=== PATIENT | male | born 1960 | race African-American/Black ===

== ENCOUNTER 2018-07-25 13:45 | Inpatient (IN) | payer MEDICARE ==
[2018-07-25] MEDS ORDERED: traMADol HCl 50 MG TAB PO PRN (18:16)
[2018-07-25] MEDS: (Anakinra [Kineret] 100 MG) SQ SCH (21:10)
[2018-07-25] MEDS ORDERED: Lantus 1000 UNITS/10 ML VIAL SC SCH (22:15)
[2018-07-26 05:24] LABS: #Basophils 0.1 thou/uL (0.0-0.2); #Lymphocytes 2.4 thou/uL (1.20-3.40); #Monocytes 0.4 thou/uL (0.11-0.59); #Neutrophils 4.3 thou/uL (1.40-6.50); %Basophils 0.8 % (0.0-1.0); %Eosinophils 0.4 % (0.0-10.0); %Lymphocytes 33.5 % (21.0-51.0); %Monocytes 5.6 % (0.0-10.0); %Neutrophils 59.6 % (42.0-75.0); Hemoglobin 11.1 g/dL (14.0-18.0); Mean Corpuscular HGB CONC 31.8 g/dL (32.0-36.0); Mean Corpuscular Hemoglobin 27.9 pg (27.0-31.0); Mean Corpuscular Volume 87.8 fL (78.0-98.0); Mean Platelet Volume 6.3 fL (7.4-10.4); Platelet Count 331 thou/uL (130-400); Red Blood Cell (RBC) Count 3.98 mill/uL (4.70-6.10); White Blood Cell (WBC) Count 7.3 thou/uL (4.8-10.8)
[2018-07-26 05:42] LABS: ALT (SGPT) 17 U/L (8-55); AST (SGOT) 14 U/L (5-34); Albumin 3.1 g/dL (3.5-5.0); Alkaline Phosphatase 75 U/L (40-150); Anion Gap 13 mmol/L (10-20); BUN (Urea Nitrogen) 12 mg/dL (8.4-25.7); Bilirubin, Total 0.4 mg/dL (0.2-1.2); CK (CPK) 19 U/L (30-200); CRP (Inflammatory) 6.56 mg/dL (= or < 0.5); Calc. Creatinine Clearance 95 mL/min (70-130); Calcium 9.1 mg/dL (7.8-10.44); Carbon Dioxide 26 mmol/L (22-29); Chloride 105 mmol/L (98-107); Estimated GFR-MDRD Greater than 90; Globulin 3.3 g/dL (2.4-3.5); Glucose 171 mg/dL (70-105); Potassium 3.8 mmol/L (3.5-5.1); Protein, Total 6.4 g/dL (6.0-8.3); Sodium 140 mmol/L (136-145)
[2018-07-26] MEDS: predniSONE 20 MG TAB PO SCH (08:08)
[2018-07-26] MEDS: Alogliptin 25 MG TAB PO SCH (08:09)
[2018-07-26] MEDS: Rivaroxaban 10 MG TAB PO SCH (08:09)
[2018-07-26] MEDS: Ezetimibe 10 MG TAB PO SCH (08:10)
[2018-07-26] MEDS: Famotidine 20 MG TAB PO SCH (08:10)
[2018-07-26] MEDS: Folic Acid 1 MG TAB PO SCH (08:10)
[2018-07-26] MEDS: Tamsulosin HCl 0.4 MG CAP PO SCH (08:11)
[2018-07-26] MEDS: Multivitamin W/ Minerals 1 TAB PO SCH (08:11)
[2018-07-26] MEDS: DAPTOmycin 500 MG in Sodium Chloride 0.9% 100 ML IVPB SCH (08:14)
[2018-07-26] MEDS ORDERED: Lantus 1000 UNITS/10 ML VIAL SC SCH (09:00)
[2018-07-26] MEDS ORDERED: DAPTOmycin 500 MG VIAL IVPB SCH (09:00)
[2018-07-26] MEDS ORDERED: Atorvastatin Calcium 40 MG TAB PO SCH (09:00)
--- NOTE | 2018-07-26 20:12 | PRG ---
DATE OF SERVICE: 07/26/2018 SUBJECTIVE: The patient is sitting up in the chair reading his iPad, states that he has become stiffer today, and eventually, it is evident on examination because he has not received his anakinra from his daughter, who will bring it in hopefully tomorrow or the next day. He has had no fever, chills, shortness of breath, cough, or chest pain. He has had no bruising or bleeding. OBJECTIVE: VITAL SIGNS: Have shown blood pressure 122/71, pulse 88, O2 saturations 97% on room air. LUNGS: Clear. CARDIAC: Showed regular rhythm. ABDOMEN: Soft and nontender. LABORATORY DATA: Show sodium 140, potassium 3.8, chloride 105, bicarb 26, BUN 12, creatinine 0.87, glucose 171, calcium 9.1, total bilirubin 0.4, AST 14, ALT 17, creatine kinase 19, CRP 656, albumin 3.1, globulin 3.3. White count 7300, hematocrit 34, hemoglobin 11.1. ASSESSMENT: 1. Methicillin-resistant Staphylococcus aureus bacteremia, on daptomycin 500 mg daily until August 14, with stable renal function. 2. Type 2 diabetes with inadequate control on 40 of Lantus in the morning. We will add 10 of Lantus at night routinely. 3. Rheumatoid arthritis and Still disease, apparently worsening off his anakinra and we will restart as soon as available. 4. Deep venous thrombosis, stable on Xarelto. 5. Adrenal insufficiency, stable on prednisone as chronic dose. 6. BPH, stable on his tamsulosin. PLAN: 1. Continue daptomycin. 2. Check labs next week. 3. Restart anakinra when available. 4. Continue Accu-Cheks, but no sliding scale and continue on Lantus 40 units in the morning and start on 10 units at night. Job ID: [id number]
[2018-07-26] MEDS ORDERED: Insulin Glargine 10 UNITS in Pre-Filled Syringe 1 EACH SC SCH (21:00)
[2018-07-26] MEDS: (Anakinra [Kineret] 100 MG) SQ SCH (21:45)
[2018-07-26] MEDS: Lantus 1000 UNITS/10 ML VIAL SC SCH (21:47)
--- NOTE | 2018-07-27 01:00 | HP ---
Admission to the skilled unit in [facility]. HISTORY OF PRESENT ILLNESS: The patient is a very pleasant 57-year-old black male with a long history of rheumatoid arthritis and possible Still disease, who has been admitted to the hospital several times with sepsis and shock, which he feels has been related to his treatment with immunosuppressant anakinra 100 mg subcu every evening. This has controlled his rheumatoid arthritis and his myocarditis, but he presented to the hospital at this time with onset of altered mental status, fever, and was found to have a positive blood culture for MRSA. Infectious Disease was consulted. He was admitted to the critical care unit because he did meet criteria for septic shock with significant hypotension requiring pressors. This resolved quickly; however, PICC line was inserted and he was started on daptomycin for 4 weeks with final dose of that antibiotic on August 14. PAST MEDICAL HISTORY: As mentioned above is positive for DVT, rheumatoid arthritis with poor control with methotrexate, but with good control with anakinra, but with recurrent episodes of sepsis syndrome. He also has been found to have adrenal insufficiency, which has been controlled with prednisone. He also has diabetes type 2, which has been exacerbated by the steroid therapy controlled in the hospital. He has a past history also of DVT for which he is on anticoagulation and he has a history of hyperlipidemia treated with statins. PAST SURGICAL HISTORY: Positive for cholecystectomy, left knee repair, shoulder repair, and C-spine surgery. ALLERGIES: HE HAS NO KNOWN ALLERGIES. FAMILY MEDICAL HISTORY: Positive for coronary disease, diabetes, end-stage renal disease. SOCIAL HISTORY: He lives with his mother. He is a nonsmoker, nondrinker. He is a full code. REVIEW OF SYSTEMS: HEENT: He denies any headaches, dizziness, change in vision or hearing, hoarseness, or dysphagia. PULMONARY: He denies any cough, sputum production, pneumonia, asthma, or tuberculosis. CARDIOVASCULAR: He denies any chest pain, orthopnea, paroxysmal nocturnal dyspnea, or edema. GASTROINTESTINAL: He denies any nausea, vomiting, diarrhea, constipation, or abdominal pain. GENITOURINARY: He denies any dysuria, hematuria, or nocturia. MUSCULOSKELETAL: He denies any stiffness or swelling in his joints. EXTREMITIES: He has been greatly improved with the anakinra and he did have significant stiffness or swelling in his neck, hands, feet prior to the dose of this medication. NEUROLOGIC: He denies any localized numbness or weakness to arms or extremities. PHYSICAL EXAMINATION: GENERAL: The patient is a middle-aged black male, sitting in the chair, appears to be in no acute distress. Oriented x3 and cooperative. VITAL SIGNS: Showed him to have blood pressure of 119/63, temperature is 98, pulse 80, respirations 18, O2 sats 95% on room air. HEENT: Pupils are equal, round, and reactive to light and accommodation. Sclerae anicteric. Conjunctivae pale. Oral mucous membranes are well hydrated. NECK: Supple. No nodes or masses. LUNGS: Clear. CARDIAC: Showed regular rhythm. No gallops or murmurs. ABDOMEN: Soft and nontender with no masses or organomegaly. SKIN/EXTREMITIES: Display no edema, clubbing, or cyanosis. NEUROLOGIC: Intact. LABORATORY DATA: Shows most recent white count of 6300, hematocrit 33, hemoglobin 11 and Accu-Cheks ranging from 198 to 355. Most recent sodium 135, potassium 3.9, chloride 100, bicarb 25, BUN 15, creatinine 1.07, calcium 8.9, and glucose 157. DIAGNOSTIC DATA: Echocardiogram done previously showed no evidence of vegetations. Chest x-ray done last week showed no infiltrates. Spinal fluid culture has been negative. Urine culture is negative and the blood culture as mentioned above shows MRSA. ASSESSMENT: 1. A 57-year-old black male with a history of Still disease, rheumatoid arthritis, immunosuppressed with anakinra, who has developed Methicillin-resistant Staphylococcus aureus bacteremia and is started on daptomycin to continue until August 14. 2. Rheumatoid arthritis, doing well on anakinra and we will continue on medication, but we will discuss with his emt i/99 next week. 3. Diabetes type 2, controlled with Levemir and Januvia and we will titrate dose here in the hospital. 4. Hyperlipidemia, stable on home medications and we will continue. 5. Adrenal insufficiency, stable on prednisone. We will continue to follow. 6. History of recent deep venous thrombosis, on Xarelto. 7. History of hypertension. Monitor closely. 8. History of chronic systolic and diastolic heart failure, compensated. Job ID: [id number]
--- NOTE | 2018-07-27 08:29 | PRG ---
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 He is admitted now for MRSA bacteremia, on daptomycin until August 14. He is feeling well, except that he is having increasing stiffness and pain in his neck and hands since he has not had his Anakinra since the transfer here and hopefully will obtain it tomorrow. His sugars have been slightly elevated, but have been increasingly controlled with titration of his a.m. and p.m. Lantus. He is denying any chest pain, shortness of breath, fever or chills. OBJECTIVE: VITAL SIGNS: Show him to have temperature 98.2, pulse 88, respirations 16, O2 sats 99% on room air, blood pressure 118/60. LUNGS: Clear. CARDIAC: Showed regular rhythm. ABDOMEN: Soft and nontender. SKIN/EXTREMITIES: Show increasing stiffness and tenderness in the metacarpophalangeal joints and in the cervical area with increased stiffness and soreness. LABORATORY DATA: His Accu-Cheks have improved to fasting of 135 to 167 in the morning, but still increasing to 368 in the afternoon and evening. ASSESSMENT: 1. Methicillin-resistant Staphylococcus aureus bacteremia, resolving on daptomycin 500 mg daily until August 14. 2. Type 2 diabetes with improving, but inadequate control on Lantus 10 units at night and Lantus 40 units in the morning. 3. Severe rheumatoid arthritis, on prednisone and Anakinra with increasing symptoms since off Anakinra. 4. History of deep venous thrombosis, on treatment with Xarelto 20 mg daily. 5. Benign prostatic hypertrophy, stable. PLAN: 1. Increase Lantus to 45 units in the morning, continue 10 units at night. 2. Continue prednisone for rheumatoid arthritis and give Anakinra as soon as available. 3. Continue daptomycin 500 mg daily. 4. Stressed the need to ambulate as much as possible. Job ID: [id number]
[2018-07-27] MEDS: Rivaroxaban 10 MG TAB PO SCH (08:52)
[2018-07-27] MEDS: predniSONE 20 MG TAB PO SCH (08:53)
[2018-07-27] MEDS: Multivitamin W/ Minerals 1 TAB PO SCH (08:54)
[2018-07-27] MEDS: Tamsulosin HCl 0.4 MG CAP PO SCH (08:54)
[2018-07-27] MEDS: Alogliptin 25 MG TAB PO SCH (08:54)
[2018-07-27] MEDS: Folic Acid 1 MG TAB PO SCH (08:55)
[2018-07-27] MEDS: DAPTOmycin 500 MG in Sodium Chloride 0.9% 100 ML IVPB SCH (08:55)
[2018-07-27] MEDS: Ezetimibe 10 MG TAB PO SCH (08:55)
[2018-07-27] MEDS: Famotidine 20 MG TAB PO SCH (08:55)
[2018-07-27] MEDS ORDERED: Atorvastatin Calcium 40 MG TAB PO SCH (09:00)
[2018-07-27] MEDS ORDERED: Sodium Chloride 0.9% 10 ML ONE (09:53)
[2018-07-27] MEDS: Lantus 1000 UNITS/10 ML VIAL SC SCH ×2 (10:29→21:45)
[2018-07-27] MEDS: Acetaminophen 500 MG TAB PO PRN (11:48)
[2018-07-27] MEDS: (Anakinra [Kineret] 100 MG) SQ SCH (21:40)
[2018-07-28] MEDS: Rivaroxaban 10 MG TAB PO SCH (07:56)
[2018-07-28] MEDS: predniSONE 20 MG TAB PO SCH (07:56)
[2018-07-28] MEDS: Insulin Regular 300 UNITS/3 ML VIAL SC SCH ×3 (07:56→16:42)
--- NOTE | 2018-07-28 08:37 | PRG ---
DATE OF SERVICE: 07/28/2018 SUBJECTIVE: The patient feels much better as he received his Anakinra last night and Tylenol with decreasing pain in his neck and hands. He is complaining somewhat; however, that he is not on a diabetic diet, although this is been ordered, and Accu-Cheks have been significantly elevated as compared to home readings. OBJECTIVE: VITAL SIGNS: Shows temperature is 99.7, pulse 96, respirations 14, O2 sats 97% on room air, blood pressure is 93/50. LUNGS: Clear. CARDIAC: Examination showed regular rhythm. ABDOMEN: Soft, nontender. SKIN/EXTREMITIES: Show tender MCP, PIP joints. LABORATORY DATA: Accu-Cheks ranged from 135 in the morning to 426 in the afternoon, on Lantus 40 units in the morning, 10 units at night. ASSESSMENT: 1. Resolving methicillin-resistant Staphylococcus aureus bacteremia, on IV daptomycin. 2. Still's disease, rheumatoid arthritis, now back on Anakinra and on his routine dose of prednisone 20 mg daily with improving stiffness, soreness. 3. Uncontrolled diabetes despite taking increased dose of medications as compared to at home. 4. Deconditioning, improving greatly. 5. History of deep venous thrombosis, on Xarelto treatment. 6. Benign prostatic hypertrophy, stable. PLAN: 1. Add 5 units of regular insulin pre-meal to his routine dose of Lantus 45 units in the morning, 10 units at night. 2. Continue Anakinra and prednisone for his rheumatoid arthritis, Still's disease. 3. Continue daptomycin 500 mg daily until August 14. 4. Stress need to get up and ambulate with PT and OT. 5. CBC, complete metabolic profile in the morning. Job ID: [id number]
[2018-07-28] MEDS: Famotidine 20 MG TAB PO SCH (08:52)
[2018-07-28] MEDS: Ezetimibe 10 MG TAB PO SCH (08:53)
[2018-07-28] MEDS: Tamsulosin HCl 0.4 MG CAP PO SCH (08:53)
[2018-07-28] MEDS: Folic Acid 1 MG TAB PO SCH (08:53)
[2018-07-28] MEDS: Alogliptin 25 MG TAB PO SCH (08:53)
[2018-07-28] MEDS: Multivitamin W/ Minerals 1 TAB PO SCH (08:54)
[2018-07-28] MEDS: DAPTOmycin 500 MG in Sodium Chloride 0.9% 100 ML IVPB SCH (08:54)
[2018-07-28] MEDS: Lantus 1000 UNITS/10 ML VIAL SC SCH ×2 (08:56→20:54)
[2018-07-28] MEDS ORDERED: Sodium Chloride 0.9% 10 ML ONE ×2 (09:11→09:50)
[2018-07-28] MEDS: (Anakinra [Kineret] 100 MG) SQ SCH (20:54)
[2018-07-29 05:13] LABS: Band 4 % (5-11); Eosinophils 2 % (0-10); Hemoglobin 10.4 g/dL (14.0-18.0); Lymphocytes 35 % (21-51); MDiff Complete? YES; Mean Corpuscular HGB CONC 32.2 g/dL (32.0-36.0); Mean Corpuscular Hemoglobin 28.2 pg (27.0-31.0); Mean Corpuscular Volume 87.4 fL (78.0-98.0); Monocytes 10 % (0-10); Neutrophil 49 % (42-75); Platelet Count 362 thou/uL (130-400); Platelet Morphology Comment Appears Adequate; RBC Distribution Width 15.2 % (11.5-14.5); RBC Morphology Normal; Red Blood Cell (RBC) Count 3.68 mill/uL (4.70-6.10); White Blood Cell (WBC) Count 5.8 thou/uL (4.8-10.8)
[2018-07-29 05:25] LABS: ALT (SGPT) 14 U/L (8-55); AST (SGOT) 16 U/L (5-34); Alkaline Phosphatase 70 U/L (40-150); Anion Gap 14 mmol/L (10-20); BUN (Urea Nitrogen) 16 mg/dL (8.4-25.7); Bilirubin, Total 0.4 mg/dL (0.2-1.2); CRP (Inflammatory) 5.65 mg/dL (= or < 0.5); Calc. Creatinine Clearance 98 mL/min (70-130); Carbon Dioxide 26 mmol/L (22-29); Chloride 105 mmol/L (98-107); Estimated GFR-MDRD Greater than 90; Globulin 2.9 g/dL (2.4-3.5); Glucose 98 mg/dL (70-105); Potassium 3.9 mmol/L (3.5-5.1); Protein, Total 5.9 g/dL (6.0-8.3); Sodium 141 mmol/L (136-145)
[2018-07-29] MEDS: Insulin Regular 300 UNITS/3 ML VIAL SC SCH ×3 (07:42→17:40)
[2018-07-29] MEDS: Rivaroxaban 10 MG TAB PO SCH (07:45)
[2018-07-29] MEDS: predniSONE 20 MG TAB PO SCH (07:46)
[2018-07-29] MEDS: DAPTOmycin 500 MG in Sodium Chloride 0.9% 100 ML IVPB SCH (08:47)
[2018-07-29] MEDS: Ezetimibe 10 MG TAB PO SCH (08:49)
[2018-07-29] MEDS: Folic Acid 1 MG TAB PO SCH (08:49)
[2018-07-29] MEDS: Tamsulosin HCl 0.4 MG CAP PO SCH (08:50)
[2018-07-29] MEDS: Alogliptin 25 MG TAB PO SCH (08:50)
[2018-07-29] MEDS: Famotidine 20 MG TAB PO SCH (08:50)
[2018-07-29] MEDS: Multivitamin W/ Minerals 1 TAB PO SCH (08:51)
[2018-07-29] MEDS: Lantus 1000 UNITS/10 ML VIAL SC SCH ×2 (08:54→20:42)
[2018-07-29] MEDS ORDERED: traMADol HCl 50 MG TAB PO PRN (17:45)
--- NOTE | 2018-07-29 18:52 | PRG ---
DATE OF SERVICE: 07/29/2018 SUBJECTIVE: The patient feels much better with decreased soreness and stiffness in joints, now that he is back on anakinra, and in fact, has been walking up and down the [place] today. He has had no fever, chills, cough or shortness of breath. He has been on his diet. OBJECTIVE: VITAL SIGNS: Blood pressure 104/59, temperature 98, pulse 97, respirations 18, and O2 sats 99% on room air. LUNGS: Clear. CARDIAC: Regular rhythm. ABDOMEN: Soft and nontender. SKIN/EXTREMITIES: Swollen, tender metacarpophalangeal joints, but appeared to be improving as well as proximal interphalangeal joints. LABORATORY: Sodium 141, potassium 3.9, chloride 105, bicarb 26, BUN 16, creatinine 0.85, glucose 98, and calcium 9.0. Total bilirubin 0.4, AST 16, ALT 14, alkaline phosphatase 70, and C-reactive protein 5.65. Total protein 5.9, albumin 3.0, and globulin 2.9. White count 5800, hematocrit 32, and hemoglobin 10. ASSESSMENT: 1. Resolving streptococcal bacteremia, on daptomycin; resolving methicillin-resistant Staphylococcus aureus bacteremia, on IV daptomycin until August 14. 2. Improving rheumatoid arthritis, Still disease, back on his anakinra and routine prednisone 20 mg daily doses with decreasing stiffness and soreness. 3. Uncontrolled diabetes, slowly improving with titration of insulin. 4. Deconditioning, resolved. 5. Benign prostatic hypertrophy, stable. 6. History of deep venous thrombosis, on Xarelto treatment. PLAN: 1. Increase premeal lispro to 7.5 units daily and continue 45 units in the morning and 10 units at night and Lantus. 2. Continue anakinra and prednisone for his rheumatoid arthritis. 3. Continue daptomycin 500 mg daily until August 14. 4. Continue to stress ambulation. 5. Continue Xarelto. Job ID: [id number]
[2018-07-29] MEDS: (Anakinra [Kineret] 100 MG) SQ SCH (20:42)
[2018-07-30] MEDS: Insulin Regular 300 UNITS/3 ML VIAL SC SCH ×3 (07:18→17:30)
[2018-07-30] MEDS: Rivaroxaban 10 MG TAB PO SCH (08:16)
[2018-07-30] MEDS: Famotidine 20 MG TAB PO SCH (09:15)
[2018-07-30] MEDS: Tamsulosin HCl 0.4 MG CAP PO SCH (09:15)
[2018-07-30] MEDS: Multivitamin W/ Minerals 1 TAB PO SCH (09:15)
[2018-07-30] MEDS: Folic Acid 1 MG TAB PO SCH (09:15)
[2018-07-30] MEDS: Alogliptin 25 MG TAB PO SCH (09:15)
[2018-07-30] MEDS: Ezetimibe 10 MG TAB PO SCH (09:16)
[2018-07-30] MEDS: DAPTOmycin 500 MG in Sodium Chloride 0.9% 100 ML IVPB SCH (09:16)
[2018-07-30] MEDS: predniSONE 20 MG TAB PO SCH (09:16)
[2018-07-30] MEDS: Lantus 1000 UNITS/10 ML VIAL SC SCH ×2 (09:17→20:44)
[2018-07-30] MEDS: (Anakinra [Kineret] 100 MG) SQ SCH (20:43)
[2018-07-31] MEDS: predniSONE 20 MG TAB PO SCH (08:17)
[2018-07-31] MEDS: Insulin Regular 300 UNITS/3 ML VIAL SC SCH ×3 (08:17→16:39)
[2018-07-31] MEDS: Rivaroxaban 10 MG TAB PO SCH (08:17)
[2018-07-31] MEDS: Ezetimibe 10 MG TAB PO SCH (08:18)
[2018-07-31] MEDS: Alogliptin 25 MG TAB PO SCH (08:18)
[2018-07-31] MEDS: Folic Acid 1 MG TAB PO SCH (08:18)
[2018-07-31] MEDS: Famotidine 20 MG TAB PO SCH (08:18)
[2018-07-31] MEDS: Lantus 1000 UNITS/10 ML VIAL SC SCH ×2 (08:18→20:03)
[2018-07-31] MEDS: Multivitamin W/ Minerals 1 TAB PO SCH (08:19)
[2018-07-31] MEDS: Tamsulosin HCl 0.4 MG CAP PO SCH (08:19)
[2018-07-31] MEDS: DAPTOmycin 500 MG in Sodium Chloride 0.9% 100 ML IVPB SCH (09:21)
[2018-07-31] MEDS: (Anakinra [Kineret] 100 MG) SQ SCH (20:03)
[2018-08-01] MEDS: Insulin Regular 300 UNITS/3 ML VIAL SC SCH ×3 (08:10→16:21)
[2018-08-01] MEDS: Alogliptin 25 MG TAB PO SCH (08:11)
[2018-08-01] MEDS: Famotidine 20 MG TAB PO SCH (08:11)
[2018-08-01] MEDS: Folic Acid 1 MG TAB PO SCH (08:11)
[2018-08-01] MEDS: predniSONE 20 MG TAB PO SCH (08:11)
[2018-08-01] MEDS: Ezetimibe 10 MG TAB PO SCH (08:11)
[2018-08-01] MEDS: Rivaroxaban 10 MG TAB PO SCH (08:11)
[2018-08-01] MEDS: Tamsulosin HCl 0.4 MG CAP PO SCH (08:12)
[2018-08-01] MEDS: Multivitamin W/ Minerals 1 TAB PO SCH (08:12)
[2018-08-01] MEDS: Lantus 1000 UNITS/10 ML VIAL SC SCH ×2 (08:12→20:23)
[2018-08-01] MEDS: DAPTOmycin 500 MG in Sodium Chloride 0.9% 100 ML IVPB SCH ×2 (09:00→18:20)
--- NOTE | 2018-08-01 14:21 | PRG ---
DATE OF SERVICE: 08/01/2018 SUBJECTIVE: Mr. Gonzales is doing well. Denies any complaints. Resting comfortably. Tolerating his medications and his diet. No family at bedside. OBJECTIVE: VITAL SIGNS: He is afebrile. Heart rate 96, respirations 18, oxygen saturation 99% on room air, blood pressure 108/67. CARDIOVASCULAR SYSTEM: S1, S2 plus. RESPIRATORY SYSTEMS: Normal vesicular breath sounds. ABDOMEN: Soft, nontender. Bowel sounds in all quadrants. EXTREMITIES: Without cyanosis, clubbing. Peripheral pulses are palpable. CENTRAL NERVOUS SYSTEM: AAO x3. Cranial nerves 2 through 12 intact. LABORATORY DATA: Blood sugars are 129, 166, 233, 341, 63, and 192. IMPRESSION: 1. Methicillin-resistant Staphylococcus aureus bacteremia. 2. Diabetes mellitus type 2. 3. Dyslipidemia. 4. Adrenal insufficiency. 5. Rheumatoid arthritis. 6. History of deep venous thrombosis. PLAN: 1. Continue daptomycin until August 14. 2. An 1800 calorie, heart-healthy, ADA diet. 3. Accu-Cheks with sliding scale coverage. 4. DVT and stress ulcer prophylaxis. 5. Decubitus precautions. 6. Routine laboratory values. 7. Physical therapy. 8. Discussed with the patient and nursing in detail. All questions answered. Job ID: [id number]
[2018-08-01] MEDS ORDERED: Sodium Chloride 0.9% 10 ML ONE (18:18)
[2018-08-01] MEDS: (Anakinra [Kineret] 100 MG) SQ SCH (20:23)
[2018-08-02] MEDS: predniSONE 20 MG TAB PO SCH ×2 (07:53→07:54)
[2018-08-02] MEDS: Rivaroxaban 10 MG TAB PO SCH (07:54)
[2018-08-02] MEDS: Insulin Regular 300 UNITS/3 ML VIAL SC SCH ×3 (07:57→17:06)
[2018-08-02] MEDS: Alogliptin 25 MG TAB PO SCH ×2 (09:10→09:11)
[2018-08-02] MEDS: DAPTOmycin 500 MG in Sodium Chloride 0.9% 100 ML IVPB SCH (09:11)
[2018-08-02] MEDS: Ezetimibe 10 MG TAB PO SCH ×2 (09:12→09:13)
[2018-08-02] MEDS: Famotidine 20 MG TAB PO SCH (09:13)
[2018-08-02] MEDS: Folic Acid 1 MG TAB PO SCH (09:13)
[2018-08-02] MEDS: Tamsulosin HCl 0.4 MG CAP PO SCH (09:14)
[2018-08-02] MEDS: Multivitamin W/ Minerals 1 TAB PO SCH (09:14)
[2018-08-02] MEDS: Lantus 1000 UNITS/10 ML VIAL SC SCH ×2 (09:14→20:12)
--- NOTE | 2018-08-02 09:34 | PRG ---
DATE OF SERVICE: 08/02/2018 SUBJECTIVE: Mr. Gonzales is up in his chair and just finished his breakfast. He is tolerating his antibiotics. He denies any questions or concerns. No family at bedside. OBJECTIVE: VITAL SIGNS: He is afebrile. Heart rate is 107, respirations 18, oxygen saturation 100% on room air, blood pressure 119/58. This was at 7:31 this morning. When I examined him, his heart rate is about 82. CARDIOVASCULAR SYSTEM: S1 and S2 plus. RESPIRATORY SYSTEM: Normal vesicular breath sounds. ABDOMEN: Soft, nontender. Bowel sounds heard in all quadrants. EXTREMITIES: Without cyanosis or clubbing. Peripheral pulses are palpable. CENTRAL NERVOUS SYSTEM: AAO x3. Cranial nerves 2 through 12 intact. Grossly nonfocal. IMPRESSION: 1. Methicillin-resistant Staphylococcus aureus bacteremia, on daptomycin IV until August 14. 2. Diabetes mellitus type 2. 3. Dyslipidemia. 4. Adrenal insufficiency. 5. Rheumatoid arthritis. 6. History of deep venous thrombosis. PLAN: 1. Continue daptomycin. 2. 1800 calorie heart-healthy ADA diet. 3. Accu-Cheks with sliding scale coverage. 4. DVT prophylaxis. He is already on Xarelto. 5. Decubitus precautions. 6. Stress ulcer prophylaxis. 7. Routine laboratory values. Job ID: [id number]
[2018-08-02] MEDS: ANAKINRA SC SCH (20:11)
[2018-08-03] MEDS: DAPTOmycin 500 MG in Sodium Chloride 0.9% 100 ML IVPB SCH (08:23)
[2018-08-03] MEDS: Insulin Regular 300 UNITS/3 ML VIAL SC SCH ×3 (08:25→17:07)
[2018-08-03] MEDS: Lantus 1000 UNITS/10 ML VIAL SC SCH ×2 (08:26→20:07)
[2018-08-03] MEDS: Rivaroxaban 10 MG TAB PO SCH (08:29)
[2018-08-03] MEDS: Alogliptin 25 MG TAB PO SCH (08:29)
[2018-08-03] MEDS: Tamsulosin HCl 0.4 MG CAP PO SCH (08:30)
[2018-08-03] MEDS: Folic Acid 1 MG TAB PO SCH (08:30)
[2018-08-03] MEDS: Famotidine 20 MG TAB PO SCH (08:30)
[2018-08-03] MEDS: Multivitamin W/ Minerals 1 TAB PO SCH (08:30)
[2018-08-03] MEDS: predniSONE 20 MG TAB PO SCH (08:31)
--- NOTE | 2018-08-03 10:23 | PRG ---
DATE OF SERVICE: 08/03/2018 SUBJECTIVE: Mr. Gonzales is doing well. Denies any complaints. Resting comfortably. Tolerating his antibiotics. His daptomycin is due for renewal, which was done. OBJECTIVE: VITAL SIGNS: He is afebrile. Heart rate 94, respirations 18, oxygen saturation 99% on room air, blood pressure 105/61. CARDIOVASCULAR SYSTEM: S1, S2 plus. RESPIRATORY SYSTEM: Normal vesicular breath sounds heard in all lung rincon. ABDOMEN: Soft, nontender. Bowel sounds heard in all quadrants. EXTREMITIES: Without cyanosis, clubbing. Peripheral pulses are palpable. Evidence for rheumatoid arthritis is present. CENTRAL NERVOUS SYSTEM: AAO x3. Cranial nerves 2 through 12 intact. Grossly nonfocal. IMPRESSION: 1. Methicillin-resistant Staphylococcus aureus bacteremia. 2. Diabetes mellitus type 2. 3. Dyslipidemia. 4. Adrenal insufficiency. 5. Rheumatoid arthritis. 6. History of deep venous thrombosis, on Xarelto. PLAN: 1. Continue daptomycin till the . 2. 1800 calorie heart-healthy ADA diet. 3. Accu-Cheks with sliding scale coverage. 4. DVT prophylaxis-on Xarelto. 5. Decubitus precautions. 6. Routine laboratory values to monitor blood counts, liver function and electrolytes. 7. Discussed with the patient in detail. All questions answered. Job ID: [id number]
[2018-08-03] MEDS: ANAKINRA SC SCH (20:06)
[2018-08-04] MEDS: Insulin Regular 300 UNITS/3 ML VIAL SC SCH ×3 (07:15→17:14)
[2018-08-04] MEDS: Alogliptin 25 MG TAB PO SCH (08:14)
[2018-08-04] MEDS: Tamsulosin HCl 0.4 MG CAP PO SCH (08:14)
[2018-08-04] MEDS: Ezetimibe 10 MG TAB PO SCH (08:14)
[2018-08-04] MEDS: Famotidine 20 MG TAB PO SCH (08:14)
[2018-08-04] MEDS: Folic Acid 1 MG TAB PO SCH (08:14)
[2018-08-04] MEDS: Rivaroxaban 10 MG TAB PO SCH (08:14)
[2018-08-04] MEDS: DAPTOmycin 500 MG in Sodium Chloride 0.9% 100 ML IVPB SCH (08:15)
[2018-08-04] MEDS: predniSONE 20 MG TAB PO SCH (08:15)
[2018-08-04] MEDS: Multivitamin W/ Minerals 1 TAB PO SCH (08:15)
[2018-08-04] MEDS: Lantus 1000 UNITS/10 ML VIAL SC SCH ×2 (08:16→20:41)
--- NOTE | 2018-08-04 11:44 | PRG ---
DATE OF SERVICE: 08/04/2018 SUBJECTIVE: Mr. Gonzales is doing well. Denies any complaints. Up in his chair, finished his breakfast, and enjoying his Sunday. No family at bedside. OBJECTIVE: VITAL SIGNS: He is afebrile. Heart rate 98, respirations 18, oxygen saturation 97% on room air, blood pressure 102/58. CARDIOVASCULAR: S1, S2 plus. RESPIRATORY: Normal vesicular breath sounds. ABDOMEN: Soft, nontender. Bowel sounds in all quadrants. EXTREMITIES: Without cyanosis or clubbing. Peripheral pulses are palpable. CENTRAL NERVOUS SYSTEM: AAO x3. Cranial nerves 2 through 12 intact. Motor system, grossly nonfocal. IMPRESSION: 1. Methicillin-resistant Staphylococcus aureus bacteremia, requiring daptomycin until . 2. Diabetes mellitus type 2. 3. Dyslipidemia. 4. Adrenal insufficiency. 5. Rheumatoid arthritis. 6. History of deep venous thrombosis. PLAN: 1. Continue current medications including IV antibiotics. 2. 1800-calorie heart-healthy ADA diet. 3. Accu-Cheks with sliding scale coverage. 4. DVT prophylaxis. He is on Xarelto. 5. Decubitus precautions. 6. Stress ulcer prophylaxis. 7. Routine laboratory values. 8. Dr. Souleymane Denton back tonight. Job ID: [id number]
[2018-08-04] MEDS: ANAKINRA SC SCH (20:39)
[2018-08-05] MEDS: Insulin Regular 300 UNITS/3 ML VIAL SC SCH ×3 (08:21→16:19)
[2018-08-05] MEDS: DAPTOmycin 500 MG in Sodium Chloride 0.9% 100 ML IVPB SCH (08:22)
[2018-08-05] MEDS: Rivaroxaban 10 MG TAB PO SCH (08:22)
[2018-08-05] MEDS: Alogliptin 25 MG TAB PO SCH (08:22)
[2018-08-05] MEDS: predniSONE 20 MG TAB PO SCH (08:22)
[2018-08-05] MEDS: Lantus 1000 UNITS/10 ML VIAL SC SCH ×2 (08:23→19:59)
[2018-08-05] MEDS: Ezetimibe 10 MG TAB PO SCH (08:23)
[2018-08-05] MEDS: Folic Acid 1 MG TAB PO SCH (08:23)
[2018-08-05] MEDS: Famotidine 20 MG TAB PO SCH (08:23)
[2018-08-05] MEDS: Multivitamin W/ Minerals 1 TAB PO SCH (08:24)
[2018-08-05] MEDS: Tamsulosin HCl 0.4 MG CAP PO SCH (08:24)
[2018-08-05] MEDS: ANAKINRA SC SCH (19:59)
[2018-08-06] MEDS ORDERED: Sodium Chloride 0.9% 10 ML ONE (08:13)
[2018-08-06] MEDS: Rivaroxaban 10 MG TAB PO SCH (08:29)
[2018-08-06] MEDS: Insulin Regular 300 UNITS/3 ML VIAL SC SCH ×3 (08:29→16:13)
[2018-08-06] MEDS: predniSONE 20 MG TAB PO SCH (08:29)
[2018-08-06] MEDS: Ezetimibe 10 MG TAB PO SCH (08:30)
[2018-08-06] MEDS: Alogliptin 25 MG TAB PO SCH (08:30)
[2018-08-06] MEDS: DAPTOmycin 500 MG in Sodium Chloride 0.9% 100 ML IVPB SCH (08:31)
[2018-08-06] MEDS: Famotidine 20 MG TAB PO SCH (08:32)
[2018-08-06] MEDS: Folic Acid 1 MG TAB PO SCH (08:32)
[2018-08-06] MEDS: Lantus 1000 UNITS/10 ML VIAL SC SCH ×2 (08:32→20:04)
[2018-08-06] MEDS: Multivitamin W/ Minerals 1 TAB PO SCH (08:33)
[2018-08-06] MEDS: Tamsulosin HCl 0.4 MG CAP PO SCH (08:33)
[2018-08-06] MEDS: ANAKINRA SC SCH (20:04)
[2018-08-07 05:41] LABS: Band 18 % (5-11); Eosinophils 1 % (0-10); Hemoglobin 11.4 g/dL (14.0-18.0); Lymphocytes 15 % (21-51); MDiff Complete? YES; Mean Corpuscular HGB CONC 30.8 g/dL (32.0-36.0); Mean Corpuscular Hemoglobin 27.4 pg (27.0-31.0); Mean Corpuscular Volume 88.9 fL (78.0-98.0); Mean Platelet Volume 5.5 fL (7.4-10.4); Metamyelocyte 3 % (0-0); Monocytes 5 % (0-10); Neutrophil 58 % (42-75); Platelet Count 223 thou/uL (130-400); Platelet Morphology Comment Appears Adequate; RBC Distribution Width 16.1 % (11.5-14.5); RBC Morphology Normal; Red Blood Cell (RBC) Count 4.15 mill/uL (4.70-6.10); White Blood Cell (WBC) Count 5.8 thou/uL (4.8-10.8)
[2018-08-07 05:43] LABS: ALT (SGPT) 39 U/L (8-55); AST (SGOT) 40 U/L (5-34); Albumin 3.3 g/dL (3.5-5.0); Alkaline Phosphatase 79 U/L (40-150); Anion Gap 15 mmol/L (10-20); BUN (Urea Nitrogen) 24 mg/dL (8.4-25.7); Bilirubin, Total 0.5 mg/dL (0.2-1.2); CRP (Inflammatory) 1.26 mg/dL (= or < 0.5); Calc. Creatinine Clearance 78 mL/min (70-130); Calcium 9.2 mg/dL (7.8-10.44); Carbon Dioxide 23 mmol/L (22-29); Chloride 105 mmol/L (98-107); Estimated GFR-MDRD 87; Globulin 3.1 g/dL (2.4-3.5); Glucose 101 mg/dL (70-105); Potassium 3.9 mmol/L (3.5-5.1); Protein, Total 6.4 g/dL (6.0-8.3); Sodium 139 mmol/L (136-145)
--- NOTE | 2018-08-07 06:33 | PRG ---
DATE OF SERVICE: 08/06/2018 SUBJECTIVE: The patient is a very pleasant 57-year-old black male with history of rheumatoid arthritis, Still disease, and recent finding of methicillin-resistant Staph bacteremia with negative echocardiogram, who is being treated at [facility] for this with IV daptomycin until August 14. He has comorbidities of type 2 diabetes, insulin dependent with only fair previous control but has done very well during this hospitalization with no complications. His rheumatoid arthritis has stabilized on his home medication of anakinra in addition to his chronic prednisone therapy and his diabetes has improved with titration of his insulin dose. He has had no hypoglycemic spells. No fever, chills, nausea, or vomiting. He has been walking in the [place]. OBJECTIVE: VITAL SIGNS: Showed him to have a temperature of 98.7, pulse 102, respirations 18, O2 sats 98% on room air, and blood pressure 105/65. LUNGS: Clear. CARDIAC: Showed regular rhythm. ABDOMEN: Soft and nontender. SKIN: Extremities show swollen metacarpophalangeal and proximal interphalangeal joints, but with no real synovitis or inflammation. LABORATORY DATA: Laboratory showed his Accu-Cheks have ranged from 123 in the morning to 302 in the afternoon, on Lantus and pre-meal sliding scale. ASSESSMENT: 1. Resolving methicillin-resistant Staphylococcus aureus bacteremia, on daptomycin. 2. Stable rheumatoid arthritis and Still disease, on anakinra and prednisone. 3. Improving deconditioning, walking in the [place]. 4. Persistently uncontrolled diabetes, on Lantus 45 units in the morning and 10 units at night as well as pre-meal lispro 7 units before every meal. PLAN: 1. Increase lispro to 8 units before every meal. Continue Lantus at previous dose. 2. Repeat CBC, comp met, sedimentation rate, and CRP in the a.m. 3. Continue IV daptomycin until August 14. 4. Continue to ambulate the [place]. Job ID: [id number]
[2018-08-07] MEDS: Multivitamin W/ Minerals 1 TAB PO SCH (08:22)
[2018-08-07] MEDS: Folic Acid 1 MG TAB PO SCH (08:22)
[2018-08-07] MEDS: Alogliptin 25 MG TAB PO SCH (08:22)
[2018-08-07] MEDS: Tamsulosin HCl 0.4 MG CAP PO SCH (08:22)
[2018-08-07] MEDS: Famotidine 20 MG TAB PO SCH (08:23)
[2018-08-07] MEDS: Rivaroxaban 10 MG TAB PO SCH (08:23)
[2018-08-07] MEDS: Ezetimibe 10 MG TAB PO SCH (08:23)
[2018-08-07] MEDS: predniSONE 20 MG TAB PO SCH (08:23)
[2018-08-07] MEDS: Insulin Regular 300 UNITS/3 ML VIAL SC SCH ×3 (08:24→17:14)
[2018-08-07] MEDS: DAPTOmycin 500 MG in Sodium Chloride 0.9% 100 ML IVPB SCH (08:32)
[2018-08-07] MEDS: Lantus 1000 UNITS/10 ML VIAL SC SCH ×2 (08:33→20:18)
--- NOTE | 2018-08-07 18:56 | PRG ---
DATE OF SERVICE: 08/07/2018 SUBJECTIVE: The patient feels well with only minimal pain in his hands. No shortness of breath. No weakness. No nausea or vomiting. Good appetite. He has been walking in the halls without assistance. OBJECTIVE: VITAL SIGNS: Show his vital signs are stable. Temperature 97.6, pulse 100, respirations 18, O2 saturations 97% on room air, blood pressure 100/62. LUNGS: Clear. CARDIAC: Showed regular rhythm. ABDOMEN: Soft and nontender. SKIN/EXTREMITIES: Show stable rheumatoid arthritis changes. LABORATORY DATA: Laboratories done today showed that white count is stable at 5800, hematocrit 36, hemoglobin 11, platelet count stable at 223. Sedimentation rate is down to 38 from previous 71 last week. Chemistry showed CRP is down to 1.26 from 5.65 last week. Sodium is 139, potassium 3.9, chloride 105, bicarb 23, BUN 24, creatinine 1.06. Accu-Cheks ranged from 102 to 302, but improved today with afternoon only 176. Albumin 3.3 and globulin 3.1. ASSESSMENT AND PLAN: 1. Resolving methicillin-resistant Staphylococcus aureus bacteremia, on daptomycin until August 14 with improving inflammatory markers and no symptoms. 2. Stable rheumatoid arthritis, Still disease, on home medications of anakinra and prednisone. 3. Diabetes type 2, improved but still not to goal and we will continue on the same dose today, but may increase premeal lispro tomorrow. Job ID: [id number]
[2018-08-07] MEDS: ANAKINRA SC SCH (20:19)
[2018-08-08] MEDS: Insulin Regular 300 UNITS/3 ML VIAL SC SCH ×3 (09:04→17:12)
[2018-08-08] MEDS: Lantus 1000 UNITS/10 ML VIAL SC SCH ×2 (09:04→20:22)
[2018-08-08] MEDS: Folic Acid 1 MG TAB PO SCH (09:06)
[2018-08-08] MEDS: Tamsulosin HCl 0.4 MG CAP PO SCH (09:06)
[2018-08-08] MEDS: Ezetimibe 10 MG TAB PO SCH (09:06)
[2018-08-08] MEDS: Multivitamin W/ Minerals 1 TAB PO SCH (09:06)
[2018-08-08] MEDS: Famotidine 20 MG TAB PO SCH (09:06)
[2018-08-08] MEDS: Alogliptin 25 MG TAB PO SCH (09:07)
[2018-08-08] MEDS: predniSONE 20 MG TAB PO SCH (09:07)
[2018-08-08] MEDS: Rivaroxaban 10 MG TAB PO SCH (09:07)
[2018-08-08] MEDS: DAPTOmycin 500 MG in Sodium Chloride 0.9% 100 ML IVPB SCH (09:07)
[2018-08-08] MEDS: ANAKINRA SC SCH (20:23)
--- NOTE | 2018-08-09 06:39 | PRG ---
DATE OF SERVICE: 08/08/2018 SUBJECTIVE: Patient feels well. No complaints, sitting up in a chair, walking in the [place], eating well. OBJECTIVE: VITAL SIGNS: Temperature is 98.5, pulse 95, respirations 18, O2 sats 96% on room air, and blood pressure 106/63. LUNGS: Clear. CARDIAC EXAMINATION: Showed regular rhythm. ABDOMEN: Soft and nontender. ASSESSMENT: 1. Resolving methicillin-resistant Staph bacteremia, on daptomycin until August 14. 2. Stable rheumatoid arthritis, Still disease. 3. Improved, resolved deconditioning. 4. Diabetes type 2 with improving control with Accu-Cheks mainly below 200. PLAN: 1. Continue daptomycin until August 14. Continue Accu-Cheks to monitor and titrate and control diabetes. 2. Continue home medications for rheumatoid arthritis. Job ID: [id number]
[2018-08-09] MEDS: Insulin Regular 300 UNITS/3 ML VIAL SC SCH ×3 (08:03→17:17)
[2018-08-09] MEDS: Rivaroxaban 10 MG TAB PO SCH (08:03)
[2018-08-09] MEDS: predniSONE 20 MG TAB PO SCH (08:03)
[2018-08-09] MEDS: Famotidine 20 MG TAB PO SCH (09:30)
[2018-08-09] MEDS: Ezetimibe 10 MG TAB PO SCH (09:30)
[2018-08-09] MEDS: DAPTOmycin 500 MG in Sodium Chloride 0.9% 100 ML IVPB SCH (09:30)
[2018-08-09] MEDS: Alogliptin 25 MG TAB PO SCH (09:30)
[2018-08-09] MEDS: Multivitamin W/ Minerals 1 TAB PO SCH (09:30)
[2018-08-09] MEDS: Tamsulosin HCl 0.4 MG CAP PO SCH (09:30)
[2018-08-09] MEDS: Folic Acid 1 MG TAB PO SCH (09:30)
[2018-08-09] MEDS: Lantus 1000 UNITS/10 ML VIAL SC SCH ×2 (09:31→20:12)
[2018-08-09] MEDS: Sodium Chloride 0.9% 20 ML ONE (09:41)
[2018-08-09] MEDS: ANAKINRA SC SCH (20:12)
[2018-08-10] MEDS: Insulin Regular 300 UNITS/3 ML VIAL SC SCH ×3 (08:13→17:15)
[2018-08-10] MEDS: Multivitamin W/ Minerals 1 TAB PO SCH (08:16)
[2018-08-10] MEDS: Rivaroxaban 10 MG TAB PO SCH (08:16)
[2018-08-10] MEDS: Ezetimibe 10 MG TAB PO SCH (08:16)
[2018-08-10] MEDS: Folic Acid 1 MG TAB PO SCH (08:16)
[2018-08-10] MEDS: Alogliptin 25 MG TAB PO SCH (08:16)
[2018-08-10] MEDS: Tamsulosin HCl 0.4 MG CAP PO SCH (08:16)
[2018-08-10] MEDS: Famotidine 20 MG TAB PO SCH (08:16)
[2018-08-10] MEDS: predniSONE 20 MG TAB PO SCH (08:17)
[2018-08-10] MEDS: DAPTOmycin 500 MG in Sodium Chloride 0.9% 100 ML IVPB SCH (08:17)
--- NOTE | 2018-08-10 08:17 | PRG ---
DATE OF SERVICE: 08/10/2018 SUBJECTIVE: Mr. Gonzales is a very pleasant 57-year-old black male with rheumatoid arthritis, treated with immunosuppressant and anakinra 100 mg subcu every evening. Unfortunately, the patient developed altered mental status and fevers, found to have positive blood cultures with MRSA from the immunosuppressant. Seen by infectious disease and placed in ICU. He had septic shock with hypotension. Eventually, this was stabilized. The patient had a PICC line and started on daptomycin for 4 weeks with the last dose being August 14. Today, the patient states that he is feeling well. He has no complaints. OBJECTIVE: VITAL SIGNS: Today reveal blood pressure 91/52, pulse 94 to 99, respirations 18 to 20, O2 saturation 98% on room air, and T-max 98.2. GENERAL: This is a well-developed, well-nourished, very pleasant black male, in no apparent distress at this time. HEENT: Normocephalic and nontraumatic cranium. Pupils are equal, round, and reactive. Extraocular movements are intact. Nose and throat are slightly dry. NECK: Supple without masses, nodes, or bruits. CHEST: Clear to auscultation. No rales, rhonchi, or wheezes are heard. HEART: Regular rate and rhythm without murmurs, gallops, or rubs. ABDOMEN: Soft and nontender without organomegaly. Normal bowel sounds are noted. No rebound or guarding is noted. : Deferred. EXTREMITIES: No clubbing, cyanosis, or edema. NEUROLOGIC: The patient is oriented x3. ASSESSMENT: 1. Methicillin-resistant Staphylococcus aureus bacteremia, daptomycin until August 14. 2. Rheumatoid arthritis. 3. Still disease. 4. Generalized weakness with deconditioning. 5. Diabetes, type 2 with Accu-Cheks yesterday, stable in the morning, but elevated last night. PLAN: 1. Continue daptomycin until August 14. 2. Monitor the patient's diabetes with Accu-Cheks a.c. and h.s. and adjust medications as needed. 3. Continue home medications. 4. Continue rheumatoid injections every evening. 5. Stress ulcer prophylaxis. 6. Decubitus precautions. 7. DVT prophylaxis. 8. Physical therapy and occupational therapy as needed. Job ID: [id number] [facility]
[2018-08-10] MEDS: Sodium Chloride 0.9% 20 ML ONE (08:18)
[2018-08-10] MEDS: Lantus 1000 UNITS/10 ML VIAL SC SCH ×2 (08:18→20:52)
[2018-08-10] MEDS: Acetaminophen 500 MG TAB PO PRN (09:05)
[2018-08-10 19:25] VITALS: BMI 24.3
[2018-08-10] MEDS: ANAKINRA SC SCH (20:55)
[2018-08-11] MEDS: Insulin Regular 300 UNITS/3 ML VIAL SC SCH ×3 (08:08→17:09)
[2018-08-11] MEDS: Folic Acid 1 MG TAB PO SCH (08:09)
[2018-08-11] MEDS: predniSONE 20 MG TAB PO SCH (08:09)
[2018-08-11] MEDS: Alogliptin 25 MG TAB PO SCH (08:09)
[2018-08-11] MEDS: Rivaroxaban 10 MG TAB PO SCH (08:09)
[2018-08-11] MEDS: Multivitamin W/ Minerals 1 TAB PO SCH (08:09)
[2018-08-11] MEDS: Tamsulosin HCl 0.4 MG CAP PO SCH (08:09)
[2018-08-11] MEDS: Ezetimibe 10 MG TAB PO SCH (08:09)
[2018-08-11] MEDS: Famotidine 20 MG TAB PO SCH (08:09)
[2018-08-11] MEDS: DAPTOmycin 500 MG in Sodium Chloride 0.9% 100 ML IVPB SCH (08:10)
[2018-08-11] MEDS: Lantus 1000 UNITS/10 ML VIAL SC SCH ×2 (08:15→20:55)
--- NOTE | 2018-08-11 08:57 | PRG ---
DATE OF SERVICE: 08/11/2018 SUBJECTIVE: Mr. Gonzales is a very pleasant 57-year-old black male, with rheumatoid arthritis. He has been treated with anakinra 100 mg subcu every evening. The patient has been immunosuppressed and unfortunately developed fever and mental status changes, but cultures were positive for MRSA. He was seen by Infectious Disease and was placed in the ICU initially with septic shock and hypotension. Eventually, he was stabilized. He had a PICC line placed and started on daptomycin 4 weeks with last dose being on August 14. He was transferred to [facility] for continued antibiotics. The patient states he is doing well and feeling well and knows that it is Sunday and . He has no complaints today. OBJECTIVE: VITAL SIGNS: Reveal blood pressure 99/63, pulse 86, respirations 20, O2 saturation 98% to 99% on room air T-max 97.9. GENERAL: On physical exam, he is a well-developed, well-nourished, very pleasant white male, in no apparent distress at this time. HEENT: Reveals normocephalic and nontraumatic cranium. Pupils are equally round and reactive. Extraocular movements are intact. Nose and throat are slightly dry. NECK: Supple without masses, nodes, or bruits. CHEST: Clear to auscultation. No rales, rhonchi, wheezes, or coughs are noted. HEART: Reveals a regular rate and rhythm without murmurs, gallops, or rubs. ABDOMEN: Soft, nontender without organomegaly. Normal bowel sounds are noted. No rebound or guarding is noted. GENITOURINARY: Deferred. EXTREMITIES: Reveal no clubbing, cyanosis, or edema. NEUROLOGIC: The patient is oriented x4. ASSESSMENT: 1. Methicillin-resistant Staphylococcus aureus bacteremia. 2. Continue daptomycin until August 14. 3. Rheumatoid arthritis. 4. Still disease. 5. Generalized weakness with deconditioning. 6. Diabetes type 2 with Accu-Cheks a.c. and at bedtime. PLAN: 1. Continue to monitor the patient's diabetes with Accu-Cheks a.c. and at bedtime, and adjust insulin as needed. 2. Continue daptomycin until August 14. 3. Continue rheumatoid injections every evening. 4. Stress ulcer prophylaxis. 5. Decubitus precautions. 6. DVT prophylaxis. 7. Continue home medications. 8. Continue PT and OT. Job ID: [id number]
[2018-08-11] MEDS: ANAKINRA SC SCH (20:54)
[2018-08-12] MEDS: Insulin Regular 300 UNITS/3 ML VIAL SC SCH ×3 (08:07→17:26)
[2018-08-12] MEDS: Lantus 1000 UNITS/10 ML VIAL SC SCH ×2 (08:08→20:42)
[2018-08-12] MEDS: Multivitamin W/ Minerals 1 TAB PO SCH (08:09)
[2018-08-12] MEDS: Ezetimibe 10 MG TAB PO SCH (08:09)
[2018-08-12] MEDS: DAPTOmycin 500 MG in Sodium Chloride 0.9% 100 ML IVPB SCH (08:09)
[2018-08-12] MEDS: Tamsulosin HCl 0.4 MG CAP PO SCH (08:09)
[2018-08-12] MEDS: Famotidine 20 MG TAB PO SCH (08:09)
[2018-08-12] MEDS: Alogliptin 25 MG TAB PO SCH (08:09)
[2018-08-12] MEDS: Folic Acid 1 MG TAB PO SCH (08:09)
[2018-08-12] MEDS: predniSONE 20 MG TAB PO SCH (08:09)
[2018-08-12] MEDS: Rivaroxaban 10 MG TAB PO SCH (08:09)
[2018-08-12] MEDS: ANAKINRA SC SCH (20:41)
[2018-08-13] MEDS: Insulin Regular 300 UNITS/3 ML VIAL SC SCH ×3 (08:00→17:17)
[2018-08-13] MEDS: predniSONE 20 MG TAB PO SCH (08:00)
[2018-08-13] MEDS: Ezetimibe 10 MG TAB PO SCH (08:39)
[2018-08-13] MEDS: Tamsulosin HCl 0.4 MG CAP PO SCH (08:39)
[2018-08-13] MEDS: Rivaroxaban 10 MG TAB PO SCH (08:39)
[2018-08-13] MEDS: DAPTOmycin 500 MG in Sodium Chloride 0.9% 100 ML IVPB SCH (08:39)
[2018-08-13] MEDS: Alogliptin 25 MG TAB PO SCH (08:39)
[2018-08-13] MEDS: Famotidine 20 MG TAB PO SCH (08:39)
[2018-08-13] MEDS: Folic Acid 1 MG TAB PO SCH (08:40)
[2018-08-13] MEDS: Lantus 1000 UNITS/10 ML VIAL SC SCH ×2 (08:40→19:58)
[2018-08-13] MEDS: Multivitamin W/ Minerals 1 TAB PO SCH (08:40)
[2018-08-13] MEDS: ANAKINRA SC SCH (19:59)
[2018-08-14 07:21] VITALS: BP 126/71; TEMP 97.3
[2018-08-14] MEDS: Insulin Regular 300 UNITS/3 ML VIAL SC SCH (08:08)
[2018-08-14] MEDS: Ezetimibe 10 MG TAB PO SCH (08:09)
[2018-08-14] MEDS: predniSONE 20 MG TAB PO SCH (08:09)
[2018-08-14] MEDS: Alogliptin 25 MG TAB PO SCH (08:09)
[2018-08-14] MEDS: Famotidine 20 MG TAB PO SCH (08:09)
[2018-08-14] MEDS: Rivaroxaban 10 MG TAB PO SCH (08:09)
[2018-08-14] MEDS: Folic Acid 1 MG TAB PO SCH (08:09)
[2018-08-14] MEDS: Multivitamin W/ Minerals 1 TAB PO SCH (08:10)
[2018-08-14] MEDS: Tamsulosin HCl 0.4 MG CAP PO SCH (08:10)
[2018-08-14] MEDS: Lantus 1000 UNITS/10 ML VIAL SC SCH (08:10)
--- NOTE | 2018-08-14 20:39 | PRG ---
DATE OF SERVICE: 08/13/2018 SUBJECTIVE: The patient is sitting in the chair, feels well with no complaints of fever or chills. He has a diagnosis of MRSA bacteremia and is finishing 4 weeks of antibiotics tomorrow with IV daptomycin. He has had good control of his rheumatoid arthritis and continued on immunosuppressant agent and has been ambulating the jackson with no difficulty. OBJECTIVE: VITAL SIGNS: Shown his blood pressure to be 121/63, temperature is 98, pulse 91, respirations 18, and O2 sats 99% on room air. LUNGS: Clear. CARDIAC: Showed regular rhythm. ABDOMEN: Soft and nontender. SKIN/EXTREMITIES: Show stable deformities of the hands. ASSESSMENT: 1. Resolving methicillin-resistant Staphylococcus aureus bacteremia. 2. Stable rheumatoid arthritis, on immunosuppressants. 3. Deconditioning, resolved. 4. Diabetes type 2, controlled to goal with Accu-Cheks less than 200 except in the evening after supper. PLAN: Finish daptomycin tomorrow. Discharged home to follow up with PCP and manager retirement. Job ID: [id number]
--- NOTE | 2018-08-15 07:49 | DIS ---
DATE OF ADMISSION: 07/25/2018 DATE OF DISCHARGE: 08/14/2018 FINAL DIAGNOSES: 1. Methicillin-resistant Staphylococcus aureus bacteremia, finished course of IV daptomycin with decreased inflammatory markers. 2. C-reactive protein of 1.26 and sedimentation rate of 38. 3. Rheumatoid arthritis and Still disease stable, on immunosuppressant, anakinra, prednisone. 4. Type 2 diabetes, controlled almost to goal, on 45 units of Lantus in the morning, 10 units of Lantus at night, and 8 units before meals with premeal Accu-Cheks less than 200 and postprandial greater than 200. 5. History of recent deep venous thrombosis, on Xarelto for full 3 months. 6. Chronic systolic and diastolic heart failure, well compensated. 7. Adrenal insufficiency, stable, on prednisone. HOSPITAL COURSE: The patient is a very pleasant 57-year-old black male with a long history of multiple medical problems including immunosuppression from severe rheumatoid arthritis, Still disease as well as possibly also adrenal insufficiency causing him to have recurrent episodes of hypotension and sepsis syndrome. He was found to have MRSA bacteremia with normal echocardiogram, but it was felt need to be treated for 4 weeks and was started on daptomycin. He did very well on daily daptomycin with initial sedimentation rate of 71, C-reactive protein of 6.56, which decreased to a sedimentation rate of 38 and C-reactive protein of 1.26 on discharge. He remained in good condition with only complaints of arthralgia initially, but then when started back on his anakinra, had resolution of his symptoms. He had no fever or chills. He was ambulating in the jackson. No shortness of breath. His laboratory remained normal with post discharge creatinine at 1.06, GFR of 87, sodium 139, potassium 3.9, and chloride 105. AST 40, ALT 39, protein 6.4, and albumin 3.3. White count of 5800, hematocrit 36, hemoglobin stable to be discharged home to follow up with his PCP and his deliver driver. MEDICATIONS: His pre-hospitalization medications are: 1. Anakinra 100 mg subcu q.p.m. 2. Atorvastatin 40 mg a.m. 3. Sitagliptin 100 mg a.m. 4. Zetia 10 mg daily. 5. Pepcid 20 mg daily. 6. Lantus 45 units in the a.m. and 10 units at night. 7. Humulin R 8 units before meals. 8. Prednisone 20 mg daily. 9. Rivaroxaban 20 mg daily. 10. Tamsulosin 0.4 mg daily. 11. Tramadol 50 mg 3 times daily as needed. Job ID: [id number]
== END 2018-08-14 11:06 | disposition home or self-care (01) | DRG 872 ==
LOC: NAV ACUTE 13:45
PROVIDERS: ADMIT Internal Medicine; ATTEND Internal Medicine
DX: R78.81 Bacteremia (principal); E27.40 Unspecified adrenocortical insufficiency; B95.62 Methicillin resistant Staphylococcus aureus infection as the cause of diseases classified elsewhere; E11.9 Type 2 diabetes mellitus without complications; E78.5 Hyperlipidemia, unspecified; I10 Essential (primary) hypertension; N40.0 Benign prostatic hyperplasia without lower urinary tract symptoms; M08.20 Juvenile rheumatoid arthritis with systemic onset, unspecified site; R53.81 Other malaise; M06.9 Rheumatoid arthritis, unspecified; R53.1 Weakness; Z86.718 Personal history of other venous thrombosis and embolism; Z90.49 Acquired absence of other specified parts of digestive tract; Z98.890 Other specified postprocedural states
CPT/HCPCS: 36415; 36416; 80053; 82550; 85025; 85652; 86140; J0878; J1815; J3490; J7512